=== PATIENT | male | born 1965 | race Asian ===

== ENCOUNTER 2016-09-04 09:47 | Inpatient (IN) | payer OTHER ==
[~2016-09-04] VITALS: Ht 172.7 cm; Wt 64.9 kg
[2016-09-04 13:40] VITALS: BP 128/68
[2016-09-04 13:52] VITALS: BP 128/68
[2016-09-04] MEDS ORDERED: ZOLPIDEM TARTRATE 10 MG TABLET PO PRN (15:00)
[2016-09-04] MEDS ORDERED: ACETAMINOPHEN ES 500 MG TABLET PO PRN (15:00)
[2016-09-04] MEDS ORDERED: MAG HYDROX/AL HYDROX/SIMETH 30 ML UDC PO PRN (15:00)
[2016-09-04] MEDS ORDERED: LORAZEPAM 1 MG TABLET FOR AGITATION PO PRN (15:00)
[2016-09-04] MEDS ORDERED: MAGNESIUM HYDROXIDE 30 ML UDC PO PRN (15:00)
[2016-09-04 16:00] VITALS: BP_SYST 111; BP_SYST 148; BP_DIAS 68; BP_DIAS 85
[2016-09-04 20:00] VITALS: BP 120/79
[2016-09-04] MEDS: ARIPIPRAZOLE 5 MG TABLET PO SCH (21:49)
[2016-09-04] MEDS ORDERED: LORAZEPAM 1 MG TABLET FOR INSOMNIA PO PRN (22:00)
[2016-09-05 08:00] VITALS: BP 114/71
[2016-09-05 10:30] VITALS: BP 114/71
[2016-09-05 16:00] VITALS: BP 118/79
[2016-09-05] MEDS: IBUPROFEN 200 MG TABLET PO PRN (17:38)
[2016-09-05 20:00] VITALS: BP 124/81
[2016-09-05] MEDS: ARIPIPRAZOLE 5 MG TABLET PO SCH (21:46)
[2016-09-05 22:00] VITALS: BP 124/81
[2016-09-06 08:00] VITALS: BP 116/69
[2016-09-06 10:00] VITALS: BP 116/69
[2016-09-06] MEDS: IBUPROFEN 200 MG TABLET PO PRN (13:21)
[2016-09-06 16:00] VITALS: BP 120/74
[2016-09-06 20:00] VITALS: BP 125/77
[2016-09-06 22:00] VITALS: BP 125/77
[2016-09-06] MEDS ORDERED: ARIPIPRAZOLE 5 MG TABLET PO SCH (22:00)
[2016-09-07 08:00] VITALS: BP 124/84
[2016-09-08] MEDS ORDERED: ARIPIPRAZOLE 5 MG TABLET PO SCH (22:00)
[2016-09-11] MEDS ORDERED: INVEST MED MK-8189 MISC 1 TAB EA PO SCH (09:00)
[2016-09-11] MEDS ORDERED: INVEST MED MK-8189 MISC 1 CAP EA PO SCH (09:00)
[2016-09-11] MEDS ORDERED: LORAZEPAM 1 MG TABLET FOR AGITATION PO PRN (14:00)
[2016-09-11] MEDS ORDERED: LORAZEPAM 1 MG TABLET FOR INSOMNIA PO PRN (22:00)
[2016-09-14] MEDS ORDERED: INVEST MED MK-8189 MISC 2 TAB EA PO SCH (09:00)
[2016-09-14] MEDS ORDERED: INVEST MED MK-8189 MISC 2 CAP EA PO SCH (09:00)
[2016-09-17] MEDS ORDERED: INVEST MED MK-8189 MISC 3 CAP EA PO SCH (09:00)
[2016-09-17] MEDS ORDERED: INVEST MED MK-8189 MISC 3 TAB EA PO SCH (09:00)
[2016-09-18] MEDS ORDERED: LORAZEPAM 1 MG TABLET FOR AGITATION PO PRN (14:00)
[2016-09-18] MEDS ORDERED: LORAZEPAM 1 MG TABLET FOR INSOMNIA PO PRN (22:00)
[2016-09-24] MEDS ORDERED: LORAZEPAM 1 MG TABLET FOR AGITATION PO PRN (14:00)
[2016-09-24] MEDS ORDERED: LORAZEPAM 1 MG TABLET FOR INSOMNIA PO PRN (22:00)
[2016-10-02] MEDS ORDERED: LORAZEPAM 1 MG TABLET FOR AGITATION PO PRN (14:00)
[2016-10-02] MEDS ORDERED: LORAZEPAM 1 MG TABLET FOR INSOMNIA PO PRN (22:00)
[2016-10-09] MEDS ORDERED: LORAZEPAM 1 MG TABLET FOR AGITATION PO PRN (14:00)
[2016-10-09] MEDS ORDERED: LORAZEPAM 1 MG TABLET FOR INSOMNIA PO PRN (22:00)
== END 2016-09-07 13:50 | disposition left against medical advice (07) | DRG 951 ==
LOC: MEDSG2 13:31
PROVIDERS: ADMIT Psychiatry & Neurology Psychiatry; ATTEND Psychiatry & Neurology Psychiatry
DX: Z00.6 Encounter for examination for normal comparison and control in clinical research program (principal); F60.0 Paranoid personality disorder; F22 Delusional disorders; F29 Unspecified psychosis not due to a substance or known physiological condition
CPT/HCPCS: Z7610